=== PATIENT | female | born 1935 | race Caucasian/White ===

== ENCOUNTER 2017-11-17 07:00 | Day surgery (SDC) | payer OTHER ==
--- NOTE | 2017-11-14 19:10 | EKG ---
Test Date: 2017-11-14 Test Time: 13:12:46 Talent Acquisition Administrator: HERO MEASUREMENT RESULTS: Intervals: Rate: 56 KS: 162 QRSD: 82 QT: 472 QTc: 455 [place]: P: 57 [place]: 162 QRS: 46 T: 71 INTERPRETIVE STATEMENTS: Sinus bradycardia Otherwise normal ECG Compared to ECG 07/30/2016 08:29:51 Sinus rhythm no longer present Electronically Signed On 11-14-17 19:09:30 CDT by Dragan Schneider
[2017-11-17] MEDS ORDERED: HEPA 1000U/500MLS 2,000 UNIT/1,000 ML BAG IV ONE (07:12)
[2017-11-17] MEDS ORDERED: NICARDIPINE HCL 25 MG/10 ML IV ONE (07:13)
[2017-11-17] MEDS ORDERED: LIDOCAINE 1% MPF 2 ML AMPULE ONE (07:13)
[2017-11-17] MEDS ORDERED: ATROPINE SULF 1 MG/10 ML SYR IV ONE (07:13)
[2017-11-17] MEDS ORDERED: HEPARIN 5000 UNIT/ML 1 ML VIAL ONE (07:13)
[2017-11-17] MEDS ORDERED: NITROGLYCERIN/D5W 25 MG/250 ML BTL IV ONE (07:14)
[2017-11-17] MEDS ORDERED: NA CHLORIDE 0.9% 0 ML ONE (07:14)
[2017-11-17] MEDS ORDERED: NA CHLORIDE 0.9% 500 ML ONE (07:24)
[2017-11-17] MEDS ORDERED: FENTANYL CITR 100 MCG/2 ML ONE (07:59)
[2017-11-17] MEDS ORDERED: MIDAZOLAM HCL 2 MG/2 ML INJ ONE ×2 (07:59→08:06)
[2017-11-17 10:10] VITALS: O2SAT 99
[2017-11-17 11:10] VITALS: BP 150/61; TEMP 97
--- NOTE | 2017-11-17 16:22 | OP ---
Surgeon: Dragan Schneider MD Procedures: Left heart catheterization, coronary, left ventricular angiography. Indications: Coronary heart disease, previous stent with chest pain. Procedure Findings: The patient had an LAD stent placed in the spring, was widely patent. N o in-stent restenosis at all. All of her arteries were free of any significant stenosis. There was minor lumen irregularity in the mid right coronary artery, less than 20% stenosis. Her left ventricu lar ejection fraction is normal. Left ventricular end-diastolic pressure of 4. All of her pressures were normal. Procedure In Detail: The patient was brought to the cardiac boot and shoe laborer in a fasting state. She was se dated with Versed and fentanyl. Prepared and draped in the usual sterile fashion. Right radial appr oach was used. Tissues around the artery were anesthetized with 1 cc of 1% lidocaine. The artery wa s entered using a 21-gauge needle. A 0.021 inch diameter guidewire was then used to cannulate the ar marcie and we used this to place a 6-Faroese Terumo radial sheath. As soon as the sheath was in and the obturator removed, it was flushed and the radial cocktail was given. This contained nicardipine, he alcon, and nitroglycerin. We guided a TIG catheter using a Terumo Glidewire with a short radius J-ti p to the ascending aorta. We also used fluoroscopy. We then used a TIG catheter to angiogram right and left coronaries and left ventricle. After adequate anatomy was taken and adequate pressure measu rements were known, we withdrew the catheter over a J-wire, flushed the sheath again, removed it, and closed the arteriotomy using a TR band. There were no complications from the procedure. Estimated Blood Loss: 5 cc. Shale Miner: Allyn Mendez. CLARISSA/MARIAN Voice ID: [id number] Report ID: [id number]
== END 2017-11-17 11:12 | disposition home or self-care (01) ==
LOC: CCL 07:00
PROVIDERS: ATTEND Internal Medicine
DX: R07.89 Other chest pain (principal); I10 Essential (primary) hypertension; E78.2 Mixed hyperlipidemia; E11.9 Type 2 diabetes mellitus without complications; Z87.891 Personal history of nicotine dependence; Z95.5 Presence of coronary angioplasty implant and graft; Z82.49 Family history of ischemic heart disease and other diseases of the circulatory system
CPT/HCPCS: 82962; 93005; 93458; C1893; J1644; J2001; J2250 ×2; J3010; J0583